=== PATIENT | female | born 1990 | race African-American/Black ===

== ENCOUNTER 2023-06-21 12:44 | Emergency (ER) | payer BC ==
[2023-06-21 12:55] VITALS: BP 139/81; PULSE 72; RESP 18; TEMP 98.4; BMI 25.8
[2023-06-21] MEDS ORDERED: ACETAMINOPHEN 325 MG TABLET (FP) PO ONE (13:05)
[2023-06-21] MEDS ORDERED: ACETAMINOPHEN 325 MG TABLET (FP) ONE (13:08)
== END 2023-06-21 13:11 | disposition home or self-care (01) ==
LOC: FER 12:44
DX: R20.2 Paresthesia of skin (principal)
CPT/HCPCS: 99282-25